=== PATIENT | female | born 1950 | race Caucasian/White ===

== ENCOUNTER 2021-04-21 15:54 | Inpatient (IN) ==
[2021-04-21] MEDS ORDERED: Magnesium Oxide 400 MG TABLET PO PRN (16:13)
[2021-04-21] MEDS ORDERED: Fluticasone Propionate Nasal 50 MCG/SPRAY BOTTLE NS PRN (16:13)
[2021-04-21] MEDS ORDERED: Torsemide 20 MG TABLET PO SCH (17:00)
[2021-04-21] MEDS: *HR* Rivaroxaban 10 MG TABLET PO SCH (18:02)
[2021-04-21] MEDS: *HR* OxyCODONE Immed Rel 5 MG TABLET PO PRN (21:28)
[2021-04-21] MEDS: Budesonide Neb 0.5 MG/2 ML IH SCH (21:58)
[2021-04-22 05:17] LABS: Basophils % 0.2 %; Eosinophils # 0.2 K/mcL (0.0-0.6); Eosinophils % 1.2 %; Hematocrit 32.7 % (35.3-44.9); Hemoglobin 9.5 g/dL (11.5-15.4); Immature Granulocytes % 1.2 % (0-4); Lymphocytes # 2.5 K/mcL (0.6-4.6); Lymphocytes % 13.7 %; Mean Corpuscular HGB Conc 29.1 g/dL (31.6-35.5); Mean Corpuscular Hemoglobin 25.1 pg (28.0-33.3); Mean Corpuscular Volume 86.5 fL (83.0-100.0); Mean Platelet Volume 9.9 fL (9.4-12.4); Monocytes # 1.2 K/mcL (0.0-1.3); Monocytes % 6.8 %; Platelet Count 549 K/mcL (140-400); Red Blood Count 3.78 M/mcL (3.82-4.97); Red Cell Distribution Width 17.5 % (11.5-14.5); Segmented Neutrophils % 76.9 %
[2021-04-22 05:21] LABS: Neutrophils # 13.8 K/mcL (1.6-8.9)
[2021-04-22 05:38] LABS: BUN/Creatinine Ratio 24 (6-26); Blood Urea Nitrogen 17 mg/dL (8-23); Calcium 8.3 mg/dL (8.6-10.3); Carbon Dioxide 35 mEq/L (23-29); Chloride 95 mEq/L (98-107); Glucose 113 mg/dL (70-105); Osmolality,Calculated 284 (280-300); Potassium 3.3 mEq/L (3.5-5.1); Sodium 136 mEq/L (136-145); eGFR For African Americans > 60 (> 60); eGFR For Non-African Americans > 60 (> 60)
[2021-04-22] MEDS: Torsemide 20 MG TABLET PO SCH ×2 (05:48→14:37)
[2021-04-22] MEDS: ALPRAZolam 0.5 MG TABLET PO PRN (08:14)
[2021-04-22] MEDS: Nicotine 14 MG PATCH.TD24 TD SCH (08:14)
[2021-04-22] MEDS: *HR* OxyCODONE Immed Rel 5 MG TABLET PO PRN (08:15)
[2021-04-22] MEDS ORDERED: Metoprolol XL (24 HR) Succ 25 MG TAB.ER.24H PO SCH (09:00)
[2021-04-22] MEDS: Levalbuterol Neb 0.63 MG/3 ML IH PRN (09:17)
[2021-04-22] MEDS: Budesonide Neb 0.5 MG/2 ML IH SCH ×2 (09:17→22:05)
[2021-04-22] MEDS: Ipratropium Neb 0.5 MG NEBULIZER IH PRN (09:17)
[2021-04-22] MEDS ORDERED: Metoprolol XL (24 HR) Succ 25 MG TAB.ER.24H PO ONE (13:11)
[2021-04-22] MEDS: Acetaminophen 325 MG TABLET PO PRN ×2 (13:26→19:46)
[2021-04-22] MEDS ORDERED: 0.9 % Sodium Chloride 500 ML IV ONE (14:38)
[2021-04-22] MEDS: *HR* Rivaroxaban 10 MG TABLET PO SCH (17:19)
[2021-04-22] MEDS ORDERED: 0.9 % Sodium Chloride 500 ML IVC ONE (19:23)
[2021-04-23] MEDS: Acetaminophen 325 MG TABLET PO PRN ×2 (05:19→20:35)
[2021-04-23] MEDS: Ipratropium Neb 0.5 MG NEBULIZER IH PRN (05:35)
[2021-04-23 05:36] LABS: Hematocrit 32.6 % (35.3-44.9); Hemoglobin 9.3 g/dL (11.5-15.4); Mean Corpuscular HGB Conc 28.5 g/dL (31.6-35.5); Mean Corpuscular Hemoglobin 25.1 pg (28.0-33.3); Mean Corpuscular Volume 87.9 fL (83.0-100.0); Mean Platelet Volume 9.3 fL (9.4-12.4); Platelet Count 621 K/mcL (140-400); Red Blood Count 3.71 M/mcL (3.82-4.97); Red Cell Distribution Width 17.9 % (11.5-14.5); White Blood Count 18.5 K/mcL (4.3-11.1)
[2021-04-23 05:49] LABS: BUN/Creatinine Ratio 22 (6-26); Blood Urea Nitrogen 21 mg/dL (8-23); Calcium 8.3 mg/dL (8.6-10.3); Carbon Dioxide 34 mEq/L (23-29); Chloride 95 mEq/L (98-107); Glucose 100 mg/dL (70-105); Magnesium 2.1 mg/dL (1.6-2.6); Osmolality,Calculated 283 (280-300); Potassium 3.8 mEq/L (3.5-5.1); Sodium 135 mEq/L (136-145); eGFR For African Americans > 60 (> 60); eGFR For Non-African Americans 58 (> 60)
[2021-04-23] MEDS: Nicotine 14 MG PATCH.TD24 TD SCH (08:41)
[2021-04-23] MEDS: Metoprolol XL (24 HR) Succ 25 MG TAB.ER.24H PO SCH (08:42)
[2021-04-23] MEDS: *HR* OxyCODONE Immed Rel 5 MG TABLET PO PRN ×2 (10:03→17:05)
[2021-04-23] MEDS: Levalbuterol Neb 0.63 MG/3 ML IH PRN ×2 (10:20→21:15)
[2021-04-23] MEDS: Budesonide Neb 0.5 MG/2 ML IH SCH ×2 (10:20→21:15)
[2021-04-23] MEDS: *HR* Rivaroxaban 10 MG TABLET PO SCH (17:03)
[2021-04-24] MEDS: Levalbuterol Neb 0.63 MG/3 ML IH PRN ×2 (07:45→22:01)
[2021-04-24] MEDS: Budesonide Neb 0.5 MG/2 ML IH SCH ×2 (07:45→22:01)
[2021-04-24] MEDS: Nicotine 14 MG PATCH.TD24 TD SCH (08:40)
[2021-04-24] MEDS: *HR* OxyCODONE Immed Rel 5 MG TABLET PO PRN ×3 (08:40→23:59)
[2021-04-24] MEDS: Metoprolol XL (24 HR) Succ 25 MG TAB.ER.24H PO SCH (08:41)
[2021-04-24] MEDS: ALPRAZolam 0.5 MG TABLET PO PRN ×2 (09:25→21:18)
[2021-04-24] MEDS: Acetaminophen 325 MG TABLET PO PRN ×2 (13:07→21:18)
[2021-04-24] MEDS: DilTIAZem CD (24hr) 120 MG CAP.ER.24H PO SCH (15:23)
[2021-04-24] MEDS: *HR* Rivaroxaban 10 MG TABLET PO SCH (17:15)
[2021-04-25] MEDS: *HR* OxyCODONE Immed Rel 5 MG TABLET PO PRN ×2 (06:31→16:31)
[2021-04-25] MEDS: Metoprolol XL (24 HR) Succ 25 MG TAB.ER.24H PO SCH (07:59)
[2021-04-25] MEDS: Nicotine 14 MG PATCH.TD24 TD SCH (07:59)
[2021-04-25] MEDS: ALPRAZolam 0.5 MG TABLET PO PRN (07:59)
[2021-04-25] MEDS: DilTIAZem CD (24hr) 120 MG CAP.ER.24H PO SCH (07:59)
[2021-04-25] MEDS: Acetaminophen 325 MG TABLET PO PRN ×2 (09:55→20:28)
[2021-04-25] MEDS: Ipratropium Neb 0.5 MG NEBULIZER IH PRN (10:46)
[2021-04-25] MEDS: Budesonide Neb 0.5 MG/2 ML IH SCH ×2 (10:46→22:09)
[2021-04-25] MEDS: Levalbuterol Neb 0.63 MG/3 ML IH PRN (10:46)
[2021-04-25] MEDS: cephALEXin 500 MG CAPSULE PO SCH ×2 (16:31→20:28)
[2021-04-25] MEDS: *HR* Rivaroxaban 10 MG TABLET PO SCH (16:31)
[2021-04-26] MEDS: *HR* OxyCODONE Immed Rel 5 MG TABLET PO PRN ×4 (00:04→20:49)
[2021-04-26] MEDS: ALPRAZolam 0.5 MG TABLET PO PRN (00:04)
[2021-04-26] MEDS: Budesonide Neb 0.5 MG/2 ML IH SCH ×2 (07:24→21:01)
[2021-04-26] MEDS: Levalbuterol Neb 0.63 MG/3 ML IH PRN ×2 (07:24→16:48)
[2021-04-26] MEDS: cephALEXin 500 MG CAPSULE PO SCH ×2 (08:58→15:05)
[2021-04-26] MEDS: DilTIAZem CD (24hr) 120 MG CAP.ER.24H PO SCH (08:58)
[2021-04-26] MEDS: Metoprolol XL (24 HR) Succ 25 MG TAB.ER.24H PO SCH (08:58)
[2021-04-26] MEDS: Nicotine 14 MG PATCH.TD24 TD SCH (08:59)
[2021-04-26 12:19] LABS: Hemoglobin 8.6 g/dL (11.5-15.4); Mean Corpuscular HGB Conc 27.7 g/dL (31.6-35.5); Mean Corpuscular Hemoglobin 25.4 pg (28.0-33.3); Mean Corpuscular Volume 91.7 fL (83.0-100.0); Mean Platelet Volume 9.3 fL (9.4-12.4); Platelet Count 516 K/mcL (140-400); Red Blood Count 3.38 M/mcL (3.82-4.97); Red Cell Distribution Width 17.9 % (11.5-14.5); White Blood Count 12.7 K/mcL (4.3-11.1)
[2021-04-26 12:39] LABS: BUN/Creatinine Ratio 19 (6-26); Blood Urea Nitrogen 13 mg/dL (8-23); Calcium 8.7 mg/dL (8.6-10.3); Carbon Dioxide 36 mEq/L (23-29); Chloride 99 mEq/L (98-107); Glucose 92 mg/dL (70-105); Osmolality,Calculated 286 (280-300); Potassium 4.7 mEq/L (3.5-5.1); Sodium 138 mEq/L (136-145); Uric Acid 3.7 mg/dL (2.3-7.6); eGFR For African Americans > 60 (> 60); eGFR For Non-African Americans > 60 (> 60)
[2021-04-26] MEDS: Acetaminophen 325 MG TABLET PO PRN (12:58)
[2021-04-26] MEDS: Ipratropium Neb 0.5 MG NEBULIZER IH PRN (16:48)
[2021-04-26] MEDS: *HR* Rivaroxaban 10 MG TABLET PO SCH (17:27)
[2021-04-26] MEDS: ceFAZolin 1,000 MG in 0.9 % Sodium Chloride 10 ML IVP SCH (20:49)
[2021-04-27] MEDS: ceFAZolin 1,000 MG in 0.9 % Sodium Chloride 10 ML IVP SCH ×2 (02:27→12:10)
[2021-04-27] MEDS: *HR* OxyCODONE Immed Rel 5 MG TABLET PO PRN ×3 (05:36→20:08)
[2021-04-27] MEDS: DilTIAZem CD (24hr) 120 MG CAP.ER.24H PO SCH (08:44)
[2021-04-27] MEDS: Metoprolol XL (24 HR) Succ 25 MG TAB.ER.24H PO SCH (08:45)
[2021-04-27] MEDS: Nicotine 14 MG PATCH.TD24 TD SCH (08:47)
[2021-04-27] MEDS: Budesonide Neb 0.5 MG/2 ML IH SCH ×2 (09:41→21:18)
[2021-04-27] MEDS: *HR* Rivaroxaban 10 MG TABLET PO SCH (16:58)
[2021-04-27] MEDS ORDERED: Simethicone 80 MG TAB.CHEW PO PRN (17:15)
[2021-04-27] MEDS: Doxycycline 100 MG in 0.9 % Sodium Chloride Mini Bag 100 ML IVPB SCH (20:09)
[2021-04-28] MEDS: *HR* OxyCODONE Immed Rel 5 MG TABLET PO PRN ×2 (05:02→13:28)
[2021-04-28 05:15] LABS: Hematocrit 30.3 % (35.3-44.9); Hemoglobin 8.3 g/dL (11.5-15.4); Mean Corpuscular HGB Conc 27.4 g/dL (31.6-35.5); Mean Corpuscular Volume 91.3 fL (83.0-100.0); Platelet Count 471 K/mcL (140-400); Red Blood Count 3.32 M/mcL (3.82-4.97); Red Cell Distribution Width 17.8 % (11.5-14.5); White Blood Count 11.6 K/mcL (4.3-11.1)
[2021-04-28 05:41] LABS: Alanine Aminotransferase 7 Units/L (7-52); Albumin 3.1 g/dL (3.5-5.7); Albumin/Globulin Ratio 1.3 (1.1-2.2); Alkaline Phosphatase 198 Units/L (34-104); Aspartate Amino Transferase 8 Units/L (13-39); BUN/Creatinine Ratio 12 (6-26); Bilirubin,Total 0.3 mg/dL (0.3-1.0); Blood Urea Nitrogen 8 mg/dL (8-23); Carbon Dioxide 40 mEq/L (23-29); Chloride 96 mEq/L (98-107); Globulin 2.4 g/dL (2.4-3.5); Glucose 92 mg/dL (70-105); Magnesium 1.7 mg/dL (1.6-2.6); Osmolality,Calculated 284 (280-300); Potassium 4.8 mEq/L (3.5-5.1); Sodium 138 mEq/L (136-145); Total Protein 5.5 g/dL (6.4-8.9); eGFR For African Americans > 60 (> 60); eGFR For Non-African Americans > 60 (> 60)
[2021-04-28] MEDS: Doxycycline 100 MG in 0.9 % Sodium Chloride Mini Bag 100 ML IVPB SCH ×2 (09:11→20:13)
[2021-04-28] MEDS: DilTIAZem CD (24hr) 120 MG CAP.ER.24H PO SCH (09:11)
[2021-04-28] MEDS: Metoprolol XL (24 HR) Succ 25 MG TAB.ER.24H PO SCH (09:11)
[2021-04-28] MEDS: Fluticasone Propionate Nasal 50 MCG/SPRAY BOTTLE NS SCH (09:12)
[2021-04-28] MEDS: acetaZOLAMIDE 250 MG TABLET PO SCH ×2 (09:14→20:12)
[2021-04-28] MEDS: Nicotine 14 MG PATCH.TD24 TD SCH (09:17)
[2021-04-28] MEDS: Budesonide Neb 0.5 MG/2 ML IH SCH ×2 (09:27→21:36)
[2021-04-28 12:16] LABS: C-Reactive Protein 35 mg/L (Less than 10)
[2021-04-28] MEDS ORDERED: Ketorolac 30 MG/ML VIAL IVP ONE (13:32)
[2021-04-28] MEDS: *HR* Rivaroxaban 10 MG TABLET PO SCH (17:13)
[2021-04-28] MEDS: Levalbuterol Neb 0.63 MG/3 ML IH PRN (21:36)
[2021-04-28] MEDS: ALPRAZolam 0.5 MG TABLET PO PRN (23:35)
[2021-04-29 04:57] LABS: Hematocrit 27.9 % (35.3-44.9); Hemoglobin 7.7 g/dL (11.5-15.4); Mean Corpuscular HGB Conc 27.6 g/dL (31.6-35.5); Mean Corpuscular Volume 90.6 fL (83.0-100.0); Mean Platelet Volume 9.3 fL (9.4-12.4); Platelet Count 449 K/mcL (140-400); Red Blood Count 3.08 M/mcL (3.82-4.97); Red Cell Distribution Width 17.9 % (11.5-14.5); White Blood Count 10.6 K/mcL (4.3-11.1)
[2021-04-29 05:12] LABS: BUN/Creatinine Ratio 13 (6-26); Blood Urea Nitrogen 11 mg/dL (8-23); Calcium 8.8 mg/dL (8.6-10.3); Carbon Dioxide 37 mEq/L (23-29); Chloride 95 mEq/L (98-107); Glucose 104 mg/dL (70-105); Magnesium 1.9 mg/dL (1.6-2.6); Osmolality,Calculated 282 (280-300); Potassium 3.8 mEq/L (3.5-5.1); Sodium 136 mEq/L (136-145); eGFR For African Americans > 60 (> 60); eGFR For Non-African Americans > 60 (> 60)
[2021-04-29] MEDS: DilTIAZem CD (24hr) 120 MG CAP.ER.24H PO SCH (08:30)
[2021-04-29] MEDS: *HR* OxyCODONE Immed Rel 5 MG TABLET PO PRN (08:30)
[2021-04-29] MEDS: acetaZOLAMIDE 250 MG TABLET PO SCH ×2 (08:31→19:31)
[2021-04-29] MEDS: Metoprolol XL (24 HR) Succ 25 MG TAB.ER.24H PO SCH (08:31)
[2021-04-29] MEDS: Nicotine 14 MG PATCH.TD24 TD SCH (08:31)
[2021-04-29] MEDS: Doxycycline 100 MG in 0.9 % Sodium Chloride Mini Bag 100 ML IVPB SCH ×2 (08:31→21:06)
[2021-04-29] MEDS: Fluticasone Propionate Nasal 50 MCG/SPRAY BOTTLE NS SCH (08:33)
[2021-04-29] MEDS: Budesonide Neb 0.5 MG/2 ML IH SCH ×2 (08:48→21:16)
[2021-04-29] MEDS: Levalbuterol Neb 0.63 MG/3 ML IH PRN ×2 (08:48→21:16)
[2021-04-29] MEDS: Ipratropium Neb 0.5 MG NEBULIZER IH PRN ×2 (08:48→21:16)
[2021-04-29] MEDS: ALPRAZolam 0.5 MG TABLET PO PRN ×2 (09:57→20:53)
[2021-04-29 13:27] LABS: ABG Base Excess 5 mEq/L (-2 to 3); ABG HCO3 33 mEq/L (21-27); ABG Oxygen Saturation 91 % (95-98); ABG PCO2 72 mmHg (35-45); ABG PH 7.27 pH Units (7.32-7.45); ABG PO2 73 mmHg (85-104); ABG TCO2 35 mEq/L (20-26)
[2021-04-29 14:40] LABS: C-Reactive Protein 36 mg/L (Less than 10)
[2021-04-29] MEDS: *HR* Rivaroxaban 10 MG TABLET PO SCH (17:11)
[2021-04-29] MEDS: MethylPREDNISolone 40 MG/ML VIAL IVP SCH (17:15)
[2021-04-29 21:30] LABS: ABG Base Excess 2 mEq/L (-2 to 3); ABG HCO3 31 mEq/L (21-27); ABG Oxygen Saturation 91 % (95-98); ABG PCO2 67 mmHg (35-45); ABG PH 7.28 pH Units (7.32-7.45); ABG PO2 71 mmHg (85-104); ABG TCO2 33 mEq/L (20-26)
[2021-04-30 04:52] LABS: Hematocrit 28.7 % (35.3-44.9); Hemoglobin 8.3 g/dL (11.5-15.4); Mean Corpuscular HGB Conc 28.9 g/dL (31.6-35.5); Mean Corpuscular Hemoglobin 25.4 pg (28.0-33.3); Mean Corpuscular Volume 87.8 fL (83.0-100.0); Mean Platelet Volume 9.2 fL (9.4-12.4); Platelet Count 410 K/mcL (140-400); Red Blood Count 3.27 M/mcL (3.82-4.97); Red Cell Distribution Width 17.9 % (11.5-14.5); White Blood Count 5.2 K/mcL (4.3-11.1)
[2021-04-30 04:56] LABS: BUN/Creatinine Ratio 20 (6-26); Blood Urea Nitrogen 15 mg/dL (8-23); Carbon Dioxide 30 mEq/L (23-29); Chloride 98 mEq/L (98-107); Glucose 196 mg/dL (70-105); Osmolality,Calculated 286 (280-300); Potassium 3.7 mEq/L (3.5-5.1); Sodium 135 mEq/L (136-145); eGFR For African Americans > 60 (> 60); eGFR For Non-African Americans > 60 (> 60)
[2021-04-30] MEDS: MethylPREDNISolone 40 MG/ML VIAL IVP SCH ×2 (05:06→16:55)
[2021-04-30] MEDS: Budesonide Neb 0.5 MG/2 ML IH SCH ×2 (07:31→20:36)
[2021-04-30] MEDS: Levalbuterol Neb 0.63 MG/3 ML IH PRN ×2 (07:31→20:36)
[2021-04-30] MEDS: acetaZOLAMIDE 250 MG TABLET PO SCH (07:34)
[2021-04-30] MEDS: Metoprolol XL (24 HR) Succ 25 MG TAB.ER.24H PO SCH (07:36)
[2021-04-30] MEDS: DilTIAZem CD (24hr) 120 MG CAP.ER.24H PO SCH (07:36)
[2021-04-30] MEDS: Doxycycline 100 MG in 0.9 % Sodium Chloride Mini Bag 100 ML IVPB SCH ×2 (07:36→20:56)
[2021-04-30] MEDS: Nicotine 14 MG PATCH.TD24 TD SCH (07:37)
[2021-04-30] MEDS: Fluticasone Propionate Nasal 50 MCG/SPRAY BOTTLE NS SCH (07:49)
[2021-04-30] MEDS: Acetaminophen 325 MG TABLET PO PRN ×2 (13:54→23:32)
[2021-04-30] MEDS: *HR* OxyCODONE Immed Rel 5 MG TABLET PO PRN (15:03)
[2021-04-30] MEDS: *HR* Rivaroxaban 10 MG TABLET PO SCH (16:54)
[2021-04-30] MEDS: Ipratropium Neb 0.5 MG NEBULIZER IH PRN (20:36)
[2021-04-30] MEDS: ALPRAZolam 0.5 MG TABLET PO PRN (23:32)
[2021-05-01] MEDS: MethylPREDNISolone 40 MG/ML VIAL IVP SCH (05:25)
[2021-05-01] MEDS: Acetaminophen 325 MG TABLET PO PRN (05:32)
[2021-05-01 05:49] LABS: Basophils % 0.1 %; Hematocrit 25.5 % (35.3-44.9); Hemoglobin 7.6 g/dL (11.5-15.4); Immature Granulocytes % 0.5 % (0-4); Lymphocytes # 0.6 K/mcL (0.6-4.6); Lymphocytes % 4.5 %; Mean Corpuscular HGB Conc 29.8 g/dL (31.6-35.5); Mean Corpuscular Hemoglobin 25.8 pg (28.0-33.3); Mean Corpuscular Volume 86.4 fL (83.0-100.0); Mean Platelet Volume 9.3 fL (9.4-12.4); Monocytes % 3.3 %; Neutrophils # 12.4 K/mcL (1.6-8.9); Platelet Count 422 K/mcL (140-400); Red Blood Count 2.95 M/mcL (3.82-4.97); Red Cell Distribution Width 18.6 % (11.5-14.5); Segmented Neutrophils % 91.6 %; White Blood Count 13.5 K/mcL (4.3-11.1)
[2021-05-01 06:08] LABS: Alanine Aminotransferase 7 Units/L (7-52); Albumin 3.1 g/dL (3.5-5.7); Albumin/Globulin Ratio 1.3 (1.1-2.2); Alkaline Phosphatase 171 Units/L (34-104); Aspartate Amino Transferase 7 Units/L (13-39); BUN/Creatinine Ratio 24 (6-26); Bilirubin,Total 0.2 mg/dL (0.3-1.0); Blood Urea Nitrogen 20 mg/dL (8-23); Calcium 8.9 mg/dL (8.6-10.3); Carbon Dioxide 28 mEq/L (23-29); Chloride 100 mEq/L (98-107); Globulin 2.4 g/dL (2.4-3.5); Glucose 151 mg/dL (70-105); Osmolality,Calculated 284 (280-300); Potassium 3.6 mEq/L (3.5-5.1); Sodium 134 mEq/L (136-145); Total Protein 5.5 g/dL (6.4-8.9); eGFR For African Americans > 60 (> 60); eGFR For Non-African Americans > 60 (> 60)
[2021-05-01 06:52] LABS: Monocytes # 0.5 K/mcL (0.0-1.3)
[2021-05-01] MEDS: Levalbuterol Neb 0.63 MG/3 ML IH PRN (06:59)
[2021-05-01] MEDS: Budesonide Neb 0.5 MG/2 ML IH SCH ×2 (06:59→22:06)
[2021-05-01] MEDS: Fluticasone Propionate Nasal 50 MCG/SPRAY BOTTLE NS SCH (09:03)
[2021-05-01] MEDS: Metoprolol XL (24 HR) Succ 25 MG TAB.ER.24H PO SCH (09:03)
[2021-05-01] MEDS: Nicotine 14 MG PATCH.TD24 TD SCH (09:03)
[2021-05-01] MEDS: DilTIAZem CD (24hr) 120 MG CAP.ER.24H PO SCH (09:04)
[2021-05-01] MEDS: Doxycycline 100 MG in 0.9 % Sodium Chloride Mini Bag 100 ML IVPB SCH ×2 (09:05→21:07)
[2021-05-01] MEDS: *HR* OxyCODONE Immed Rel 5 MG TABLET PO PRN ×2 (09:27→21:13)
[2021-05-01 12:12] LABS: Bilirubin,Urine Negative (Negative); Blood,Urine Negative (Negative); Clarity,Urine Clear (Clear); Color,Urine Yellow (Yellow); Glucose,Urine (UA) Normal (Normal); Ketones,Urine Negative (Negative); Leukocyte Esterase,Urine Negative (Negative); Nitrite,Urine Negative (Negative); PH,Urine 6.5 pH Units (5.0-8.0); Protein,Urine Negative (Neg-Trace); Specific Gravity,Urine 1.015 (1.010-1.025); Urobilinogen,Urine Normal (Normal)
[2021-05-01] MEDS: *HR* Rivaroxaban 10 MG TABLET PO SCH (16:58)
[2021-05-01] MEDS: ALPRAZolam 0.5 MG TABLET PO PRN (21:18)
[2021-05-02 06:13] LABS: Basophils % 0.1 %; Eosinophils % 0.1 %; Hematocrit 27.5 % (35.3-44.9); Hemoglobin 7.7 g/dL (11.5-15.4); Immature Granulocytes % 0.4 % (0-4); Lymphocytes # 1.4 K/mcL (0.6-4.6); Lymphocytes % 12.9 %; Mean Corpuscular Hemoglobin 25.2 pg (28.0-33.3); Mean Corpuscular Volume 89.9 fL (83.0-100.0); Mean Platelet Volume 9.3 fL (9.4-12.4); Monocytes # 0.7 K/mcL (0.0-1.3); Monocytes % 6.2 %; Platelet Count 398 K/mcL (140-400); Red Blood Count 3.06 M/mcL (3.82-4.97); Red Cell Distribution Width 18.6 % (11.5-14.5); Segmented Neutrophils % 80.3 %; White Blood Count 11.2 K/mcL (4.3-11.1)
[2021-05-02 06:26] LABS: BUN/Creatinine Ratio 32 (6-26); Blood Urea Nitrogen 26 mg/dL (8-23); Calcium 8.7 mg/dL (8.6-10.3); Carbon Dioxide 32 mEq/L (23-29); Chloride 101 mEq/L (98-107); Glucose 98 mg/dL (70-105); Osmolality,Calculated 289 (280-300); Potassium 3.6 mEq/L (3.5-5.1); Sodium 137 mEq/L (136-145); eGFR For African Americans > 60 (> 60); eGFR For Non-African Americans > 60 (> 60)
[2021-05-02] MEDS: *HR* OxyCODONE Immed Rel 5 MG TABLET PO PRN ×2 (06:45→14:33)
[2021-05-02] MEDS: Budesonide Neb 0.5 MG/2 ML IH SCH ×2 (07:04→22:43)
[2021-05-02] MEDS: Levalbuterol Neb 0.63 MG/3 ML IH PRN ×2 (07:04→17:40)
[2021-05-02 07:29] VITALS: BP 119/69; PULSE 81; TEMP 97.6; O2SAT 98
[2021-05-02] MEDS ORDERED: predniSONE 20 MG TABLET PO SCH (09:00)
[2021-05-02] MEDS: DilTIAZem CD (24hr) 120 MG CAP.ER.24H PO SCH (09:22)
[2021-05-02] MEDS: Metoprolol XL (24 HR) Succ 25 MG TAB.ER.24H PO SCH (09:22)
[2021-05-02] MEDS: Nicotine 14 MG PATCH.TD24 TD SCH (09:22)
[2021-05-02] MEDS: Fluticasone Propionate Nasal 50 MCG/SPRAY BOTTLE NS SCH (09:24)
[2021-05-02] MEDS: Doxycycline 100 MG in 0.9 % Sodium Chloride Mini Bag 100 ML IVPB SCH (09:27)
[2021-05-02] MEDS: *HR* Rivaroxaban 10 MG TABLET PO SCH (17:24)
[2021-05-02] MEDS: Acetaminophen 325 MG TABLET PO PRN (17:24)
[2021-05-02 17:41] VITALS: RESP 18
[2021-05-02] MEDS: ALPRAZolam 0.5 MG TABLET PO PRN (20:42)
== END 2021-05-02 20:51 ==
LOC: INPGRE 15:57
PROVIDERS: ADMIT Family Medicine; ATTEND Family Medicine